=== PATIENT | female | born 1965 | race Caucasian/White ===

== ENCOUNTER 2016-09-28 02:08 | Inpatient (IN) | payer MEDICARE ==
[~2016-09-28] VITALS: Ht 165.1 cm; Wt 98.1 kg
--- NOTE | ~2016-09-28 | EKG ---
[place], [place] ELECTROCARDIOGRAM REPORT NAME: SHIRA SANCHEZ UNIT #: [id number] ROOM: [id number] DOCTOR: SAMREEN CARRERA MD BIRTHDATE: [birth year] DOS: 09/28/2016 TIME: 02:54 a.m. The patient is in a ventricular paced rhythm with 100% of the ventricular complexes paced. Underlying atrial rhythm could not be discerned and may be atrial fibrillation. Abnormal electrocardiogram. SAMREEN CARRERA MD CM:EKGRPT:ELECTROCARDIOGRAM REPORT [id number] SAMREEN CARRERA MD
[~2016-09-28 02:08] MED LIST: BACTRIM DS 8001 TA1 PO; BENTYL10 MG PO; COREG12.5 MG PO; COREG3.125 MG PO; CYCLOBENZAPRINE10 MG PO; CYMBALTA30 MG PO; CYMBALTA60 MG PO; Fioricet 325 MG1 TAB PO; PHENERGAN25 M3 PO; PROTONIX40 MG PO; TOPROL XL25 MG PO; TRAMADOL HCL50 MG PO; ULTRAM50 MG PO; ZOFRAN ODT4 MG SL
[2016-09-28 02:15] VITALS: BP 136/95
[2016-09-28] MEDS ORDERED: PROVIGIL PO (02:18)
[2016-09-28 03:06] LABS: BASO % 0.3 % (0.0-1.0); EOS % 0.1 % (1.0-4.0); HEMATOCRIT 39.4 % (37.0-47.0); HEMOGLOBIN 13.3 g/dl (12.0-16.0); LYMPH # 1.6 10*3/uL (1.3-4.4); LYMPH % 21.4 % (27.0-41.0); MEAN CELL VOLUME 85.7 fl (81.0-99.0); MEAN CORPUSCULAR HGB 28.9 pg (27.0-31.0); MEAN CORPUSCULAR HGB CONC 33.8 g/dl (33.0-37.0); MEAN PLATELET VOLUME 11.9 fl (9.6-12.3); MONO # 0.5 10*3/uL (0.1-1.0); MONO % 6.3 % (3.0-9.0); NEUT # 5.4 10*3/uL (2.3-7.9); NEUT % 71.5 % (47.0-73.0); PLATELET COUNT AUTOMATED 193 10*3/uL (130-400); RED CELL DISTRI WIDTH 12.5 % (0-14.5); WHITE BLOOD COUNT 7.5 10*3/uL (4.8-10.8)
[2016-09-28 03:22] LABS: ALBUMIN 3.9 gm/dl (3.1-4.5); ALKALINE PHOSPHATASE 65 U/L (45-117); BILIRUBIN, TOTAL 0.6 mg/dl (0.2-1.0); BUN 14 mg/dl (7-24); CARBON DIOXIDE 30 mmol/L (21-32); CHLORIDE 99 mmol/L (98-107); EST GLOM FILT AFRICAN AMERICAN > 60 ml/min; GLUCOSE 118 mg/dL (65-99); POTASSIUM 3.9 mmol/L (3.5-5.1); SGOT/AST 58 IU/L (3-35); SGPT/ALT 105 U/L (12-78); SODIUM 139 mmol/L (136-145); TOTAL PROTEIN 7.8 gm/dL (6.4-8.2)
[2016-09-28 03:25] LABS: C-REACTIVE PROTEIN < 0.29 MG/DL (0-0.3)
[2016-09-28 03:26] LABS: TROPONIN I 0.065 ng/ml (<0.045)
[2016-09-28 04:00] VITALS: BP 105/66
[2016-09-28] MEDS ORDERED: TRAMADOL HCL50 MG PO (05:38)
[2016-09-28 08:00] VITALS: BP 106/56
[2016-09-28 08:12] LABS: CKMB 4.5 ng/ml (0.5-3.6)
[2016-09-28 08:26] LABS: TROPONIN I 0.074 ng/ml (<0.045)
[2016-09-28 08:29] LABS: INTERNATIONAL NORM RATIO 1.1 (2.0-3.5); PROTHROMBIN TIME 11.2 SECONDS (9.0-12.4)
[2016-09-28 12:00] VITALS: BP 102/70
[2016-09-28] MEDS ORDERED: PROTONIX40 MG PO (13:46)
[2016-09-28 14:23] LABS: CKMB 4.6 ng/ml (0.5-3.6)
[2016-09-28 14:25] LABS: TROPONIN I 0.077 ng/ml (<0.045)
== END 2016-09-28 15:23 | disposition home or self-care (01) | DRG 384 ==
LOC: ED 02:08 → 4E 04:49 → EDHOLD 04:49 → 4E 05:02
PROVIDERS: Emergency Medicine Emergency Medical Services; Hospitalist
DX: K27.9 Peptic ulcer, site unspecified, unspecified as acute or chronic, without hemorrhage or perforation (principal); I42.1 Obstructive hypertrophic cardiomyopathy; K76.0 Fatty (change of) liver, not elsewhere classified; K21.9 Gastro-esophageal reflux disease without esophagitis; E28.2 Polycystic ovarian syndrome; I10 Essential (primary) hypertension; R74.0 Nonspecific elevation of levels of transaminase and lactic acid dehydrogenase [LDH]; Z90.49 Acquired absence of other specified parts of digestive tract; Z95.810 Presence of automatic (implantable) cardiac defibrillator; Z98.84 Bariatric surgery status; Z82.49 Family history of ischemic heart disease and other diseases of the circulatory system; Z90.710 Acquired absence of both cervix and uterus; Z80.9 Family history of malignant neoplasm, unspecified; Z88.5 Allergy status to narcotic agent; Z88.8 Allergy status to other drugs, medicaments and biological substances; Z85.42 Personal history of malignant neoplasm of other parts of uterus; Z79.899 Other long term (current) drug therapy

== ENCOUNTER 2017-02-16 17:25 | Emergency (ER) | payer MEDICARE ==
[~2017-02-16] VITALS: Ht 165.1 cm; Wt 97.1 kg
[~2017-02-16 17:25] MED LIST changes: +PROVIGIL PO
[2017-02-16 18:06] LABS: BASO % 0.3 % (0.0-1.0); EOS % 0.2 % (1.0-4.0); HEMOGLOBIN 13.3 g/dl (12.0-16.0); LYMPH # 1.8 10*3/uL (1.3-4.4); LYMPH % 19.8 % (27.0-41.0); MEAN CELL VOLUME 88.1 fl (81.0-99.0); MEAN CORPUSCULAR HGB 29.3 pg (27.0-31.0); MEAN CORPUSCULAR HGB CONC 33.3 g/dl (33.0-37.0); MONO # 0.8 10*3/uL (0.1-1.0); MONO % 8.5 % (3.0-9.0); NEUT # 6.3 10*3/uL (2.3-7.9); NEUT % 70.5 % (47.0-73.0); PLATELET COUNT AUTOMATED 207 10*3/uL (130-400); RED BLOOD COUNT 4.54 10*6/uL (4.10-5.10); RED CELL DISTRI WIDTH 12.7 % (0-14.5); WHITE BLOOD COUNT 8.9 10*3/uL (4.8-10.8)
[2017-02-16 18:24] LABS: ALBUMIN 4.1 gm/dl (3.1-4.5); ALKALINE PHOSPHATASE 71 U/L (45-117); BUN 18 mg/dl (7-24); CHLORIDE 102 mmol/L (98-107); CREATININE 1.08 mg/dL (0.55-1.02); LIPASE 175 U/L (73-393); POTASSIUM 3.9 mmol/L (3.5-5.1); SGOT/AST 69 IU/L (3-35); SGPT/ALT 129 U/L (12-78); SODIUM 139 mmol/L (136-145); TROPONIN I 0.039 ng/ml (<0.045)
[2017-02-16 18:28] LABS: BILIRUBIN 2+ (NEGATIVE); BLOOD TRACE-INTACT (NEGATIVE); CLARITY SL CLOUDY (CLEAR); COLOR YELLOW (YELLOW); GLUCOSE NEGATIVE (NEGATIVE); KETONE NEGATIVE (NEGATIVE); LEUKO ESTERASE 1+ (NEGATIVE); NITRITE NEGATIVE (NEGATIVE); PH 5.5 (5.0-9.0); SPECIFIC GRAVITY >= 1.030 (1.005-1.030)
[2017-02-16 18:47] LABS: BACTERIA 2+; FINE GRANULAR CAST 0-2; WBC 21-30 wbc/hpf (0-5)
[2017-02-16] MEDS ORDERED: ZANTAC 150150 MG PO (20:31)
[2017-02-16] MEDS ORDERED: ZOFRAN ODT4 MG SL (20:31)
[2017-02-16] MEDS ORDERED: AMINOPHYLLIN200 MG PO (20:31)
== END 2017-02-16 20:46 | disposition home or self-care (01) ==
LOC: ED 17:25
PROVIDERS: Physician Assistant
DX: N39.0 Urinary tract infection, site not specified (principal); R10.13 Epigastric pain; Z90.710 Acquired absence of both cervix and uterus; Z95.0 Presence of cardiac pacemaker; Z90.49 Acquired absence of other specified parts of digestive tract; Z98.890 Other specified postprocedural states; Z79.899 Other long term (current) drug therapy; Z88.5 Allergy status to narcotic agent

== ENCOUNTER 2017-02-28 11:17 | Emergency (ER) | payer MEDICARE ==
[~2017-02-28] VITALS: Ht 165.1 cm; Wt 97.1 kg
[~2017-02-28 11:17] MED LIST changes: +AMINOPHYLLIN200 MG PO; +AUGMENTIN 875875 MG PO; +ZANTAC 150150 MG PO
[2017-02-28 12:27] LABS: BASO % 0.3 % (0.0-1.0); EOS # 0.1 10*3/uL (0.0-0.4); EOS % 0.7 % (1.0-4.0); HEMATOCRIT 39.9 % (37.0-47.0); HEMOGLOBIN 13.1 g/dl (12.0-16.0); LYMPH % 26.2 % (27.0-41.0); MEAN CELL VOLUME 88.1 fl (81.0-99.0); MEAN CORPUSCULAR HGB 28.9 pg (27.0-31.0); MEAN CORPUSCULAR HGB CONC 32.8 g/dl (33.0-37.0); MEAN PLATELET VOLUME 11.9 fl (9.6-12.3); MONO # 0.6 10*3/uL (0.1-1.0); MONO % 7.4 % (3.0-9.0); NEUT # 4.9 10*3/uL (2.3-7.9); NEUT % 64.9 % (47.0-73.0); PLATELET COUNT AUTOMATED 164 10*3/uL (130-400); RED BLOOD COUNT 4.53 10*6/uL (4.10-5.10); RED CELL DISTRI WIDTH 12.8 % (0-14.5); WHITE BLOOD COUNT 7.6 10*3/uL (4.8-10.8)
[2017-02-28 12:39] LABS: BUN 22 mg/dl (7-24); CHLORIDE 107 mmol/L (98-107); CREATININE 0.78 mg/dL (0.55-1.02); SODIUM 142 mmol/L (136-145)
== END 2017-02-28 14:53 | disposition short-term general hospital (02) ==
LOC: ED 11:17
PROVIDERS: Emergency Medicine
DX: S61.452D Open bite of left hand, subsequent encounter (principal); L08.89 Other specified local infections of the skin and subcutaneous tissue; I10 Essential (primary) hypertension; K21.9 Gastro-esophageal reflux disease without esophagitis; Z88.6 Allergy status to analgesic agent; X58.XXXD Exposure to other specified factors, subsequent encounter

== ENCOUNTER → 2017-10-14 | Outpatient (CLI) | payer MEDICARE ==
[2017-10-14 11:25] LABS: BASO % 0.3 % (0.0-1.0); EOS # 0.1 10*3/uL (0.0-0.4); EOS % 1.9 % (1.0-4.0); HEMATOCRIT 43.3 % (37.0-47.0); LYMPH # 2.4 10*3/uL (1.3-4.4); LYMPH % 35.6 % (27.0-41.0); MEAN CELL VOLUME 89.5 fl (81.0-99.0); MEAN CORPUSCULAR HGB 28.9 pg (27.0-31.0); MEAN CORPUSCULAR HGB CONC 32.3 g/dl (33.0-37.0); MEAN PLATELET VOLUME 12.6 fl (9.6-12.3); MONO # 0.6 10*3/uL (0.1-1.0); MONO % 8.8 % (3.0-9.0); NEUT # 3.6 10*3/uL (2.3-7.9); NEUT % 52.7 % (47.0-73.0); PLATELET COUNT AUTOMATED 198 10*3/uL (130-400); RED BLOOD COUNT 4.84 10*6/uL (4.10-5.10); RED CELL DISTRI WIDTH 12.6 % (0-14.5); WHITE BLOOD COUNT 6.9 10*3/uL (4.8-10.8)
[2017-10-14 11:52] LABS: ALBUMIN 4.2 gm/dl (3.1-4.5); BUN 18 mg/dl (7-24); CHLORIDE 108 mmol/L (98-107); CHOLESTEROL 111 mg/dL (<200); CREATININE 0.89 mg/dL (0.55-1.02); POTASSIUM 3.9 mmol/L (3.5-5.1); SGOT/AST 69 IU/L (3-35); SGPT/ALT 111 U/L (12-78); SODIUM 140 mmol/L (136-145)
[2017-10-14 12:03] LABS: ALKALINE PHOSPHATASE 68 U/L (45-117); HDL CHOLESTEROL 47 mg/dl (40-60); LDL CHOLESTEROL 50 mg/dL (9-159); TOTAL PROTEIN 8.1 gm/dL (6.4-8.2); TRIGLYCERIDES 70 mg/dl (<150); VLDL CHOLESTEROL 14 mg/dL (6-40)
== END | disposition home or self-care (01) ==
LOC: LAB 10:33
PROVIDERS: Nurse Practitioner Primary Care
DX: E03.9 Hypothyroidism, unspecified (principal); E55.9 Vitamin D deficiency, unspecified; Z68.38 Body mass index [BMI] 38.0-38.9, adult

== ENCOUNTER → 2018-06-26 | Outpatient (CLI) | payer MEDICARE ==
[2018-06-26 13:36] LABS: BUN 17 mg/dl (7-24); CHLORIDE 106 mmol/L (98-107); POTASSIUM 4.2 mmol/L (3.5-5.1); SODIUM 142 mmol/L (136-145)
[2018-06-29 15:58] LABS: A PHAGOCYTOPHILUM PCR Negative (Negative); EHRLICHIA CHAFFEENSIS PCR Negative (Negative)
== END | disposition home or self-care (01) ==
LOC: LAB 11:44
DX: N90.810 Female genital mutilation status, unspecified (principal)